=== PATIENT | male | born 1975 | race Caucasian/White ===

== ENCOUNTER 2017-07-23 23:03 | Emergency (ER) | payer SELFPAY ==
[~2017-07-23] VITALS: Ht 175.3 cm; Wt 81.6 kg
[~2017-07-23 23:03] MED LIST: CYCL5TAB PO; HYDR-971 PO; IBUP-1060 PO; METH5TAB2 PO; VENTOLIN HFA18 GM IH
[2017-07-23 23:52] VITALS: BP 124/79
[2017-07-24] MEDS ORDERED: NAPR500T PO (00:35)
[2017-07-24] MEDS ORDERED: TIZA4CAP3 PO (00:35)
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
[2017-07-24] MEDS ORDERED: tiZANidine 4 MG TABLET. PO ONE (01:00)
[2017-07-24] MEDS ORDERED: NAPROXEN 500 MG TABLET PO ONE (01:00)
== END 2017-07-24 00:53 | disposition home or self-care (01) ==
LOC: ER 23:48
DX: M79.1 Myalgia (principal); M54.2 Cervicalgia; M54.9 Dorsalgia, unspecified; F17.210 Nicotine dependence, cigarettes, uncomplicated; J45.909 Unspecified asthma, uncomplicated; Z96.651 Presence of right artificial knee joint; V43.62XA Car passenger injured in collision with other type car in traffic accident, initial encounter; Y93.89 Activity, other specified; Y92.410 Unspecified street and highway as the place of occurrence of the external cause; Y99.8 Other external cause status
CPT/HCPCS: 99283

== ENCOUNTER → 2019-05-15 | Outpatient (CLI) | payer OTHER ==
[~2019-05-15] MED LIST changes: +ALBUTEROL SULFATE 2.5 MG/3 ML NEBU. NEB ONE; +HYDR-3164 PO; -HYDR-971 PO; +NAPR-683 PO; +TIZA4CAP3 PO
--- NOTE | 2019-05-15 16:43 | RAD ---
Chest, PA and Lateral: Technique: PA and lateral views of the chest were obtained. History: Shortness of breath. Comparison: 07/24/2014. Findings: Low lung volumes accentuates heart size and pulmonary vascularity. Mild diffuse prominent appearing bilateral interstitial lung markings could be mild congestive changes or chronic interstitial changes. IMPRESSION: Mild diffuse prominent bilateral perihilar interstitial lung markings could be mild congestive changes or chronic interstitial changes. Electronically signed by: Romeo Miranda MD (05/15/2019 4:40 PM) [id number]
--- NOTE | 2019-05-15 16:47 | RAD ---
Examination: 3 views of the left foot and left knee HISTORY: History of left knee, foot pain COMPARISON: None available Findings/ impression: The alignment of the tarsal bones grossly appears unremarkable. Mild degenerative changes identified in the tarsometatarsal joints, tarsophalangeal joints. There is probable subluxation or dislocation of the fifth MTP joint with the proximal phalanx medial and likely volar in relation to the head of the fifth metatarsal. Moderate joint space loss identified in the medial, lateral compartment femoral compartments. Moderate-sized osteophyte formation identified in the lateral compartment. Moderate tricompartmental degenerative changes. Electronically signed by: Romeo Miranda MD (05/15/2019 4:44 PM) [id number]
== END | disposition home or self-care (01) ==
LOC: PF 12:13
PROVIDERS: ATTEND General Practice
DX: Z02.71 Encounter for disability determination (principal); M19.072 Primary osteoarthritis, left ankle and foot; M17.12 Unilateral primary osteoarthritis, left knee; M25.762 Osteophyte, left knee; R06.02 Shortness of breath
CPT/HCPCS: 71046; 73562; 73630; 94060; 94640; J7613